=== PATIENT | female | born 1970 | race Caucasian/White ===

== ENCOUNTER 2016-05-30 15:40 | Emergency (ER) | payer OTHER ==
--- NOTE | ~2016-05-30 | CT71 ---
[facility] A Service [facility] RADIOLOGY TEXT RESULTS PATIENT: MARISOL MONTELONGO LOCATION: SED : 70 UNIT #: [id number] AGE: [address]: Jonas Lee MD SEX: F ORDER DR: [id number] [place] [address] [id number] MR#: [id number] Acc #: [id number] NAME: MARISOL MONTELONGO : 1970 SEX: F STUDY DATE/TIME: 05/30/2016 16:10 UNIT: SED ROOM: STUDY DESCRIPTION: CT Head Wo Contrast Attending Physician: Jonas Lee M.D. Ordering Physician: Jonas Lee M.D. Primary Care Physician: Trey Mcgrath Pa-C MEDICAL IMAGING REPORT This report is preliminary unless electronic signature is present. EXAM CT scan of the head without contrast, 05/30/2016 INDICATION Syncope, loss of memory. Headache x3 weeks. TECHNIQUE This CT exam was performed with one or more of the following radiation dose reduction techniques: automatic exposure control, adjustment of mA and/or kV according to patient size, and iterative reconstruction. FINDINGS Axial noncontrast images were obtained from the skull base to the vertex. Ventricular size and configuration are normal. There is no evidence of acute infarct or hemorrhage. There are no extraaxial fluid collections. No mass lesion or mass effect is seen. There are no skull fractures. IMPRESSION Normal noncontrast head CT. Dictated by... Uriel Gerard M.D. THIS IS AN ELECTRONICALLY VERIFIED REPORT Uriel Gerard M.D. at 05/31/2016 9:22 AM ZENY/cristina TD: 05/31/2016 03:30 [facility] A Service [facility] RADIOLOGY TEXT RESULTS PATIENT: MARISOL MONTELONGO LOCATION: SED : 70 UNIT #: [id number] AGE: [address]: Jonas Lee MD SEX: F ORDER DR: MARIIA #: [id number] MEDICAL IMAGING REPORT
[~2016-05-30 15:40] MED LIST: ALBUTEROL17 GM INH; AMITRIPTYLINE H25 MG PO; ANTIVERT PO; ASPIRIN EC81 M1; ASPIRIN EC81 M1 PO; ASPIRIN81 M1 PO; ATARAX PO; BACLOFEN10 MG PO; BACTRIM DS TABL1 TA1 PO; BACTRIM DS TABL1 TA2 PO; BACTRIM DS TABL1 TAB PO; BACTROBAN15 GM TOP; BUSPAR15 MG PO; CALCIUM 5001 TAB PO; CARAFATE1 G PO; CELEBREX PO; CIPRO PO; CLEOCIN PO; COMPAZINE10 MG PO; CYANOCOBAL1000 MCG/M INJ; CYMBALTA PO; DIAZEPAM PO; DICLOFENAC PO; DIFLUCAN PO; EFFEXOR XR PO; ENDOCET 10-3251 TAB PO; FAMOTIDINE PO; FISH OIL 1,0001 EAC1 PO; FISH OIL500 M2 PO; FLAGYL PO; FLEXERIL; FLEXERIL PO; FLEXERIL10 M1 PO; FLEXERIL10 MG PO; GABAPENTIN300 MG PO; GABAPENTIN400 MG PO; GABAPENTIN600 MG PO; GABAPENTIN800 MG PO; HYDROCODON-ACE1 EAC5 PO; HYDROCODON-ACE1 EAC7 PO; HYDROCODON-ACE118 ML PO; IBUPROFEN; IBUPROFEN PO; IMITREX PO; KEFLEX250 M2 PO; KETAMINE CREAM; KLONOPIN PO; KLONOPIN1 MG PO; LISINOPRIL5 MG PO; LODINE500 M1 PO; LORTAB 10-5001 EACH PO; LORTAB 2.5/5001 TAB PO; LORTAB 7.51 TAB 7.5/ PO; MEDI-MECLIZINE25 M1 PO; MEDROL DOSEPAK4 MG PO; MEDROL PO; MEDROL4 MG/DOSE- PO; METOPROLOL SUCC25 MG PO; MOBIC15 MG PO; MOTION RELIEF25 MG PO; NEURONTIN PO; NITROGLYCERIN0.4 MG; NITROGLYGERIN0.4 MG SL; NO MEDICATIONS; OMEPRAZOLE40 M1 PO; PERCOCET 10-651 EACH PO; PERCOCET 10/31 UDTA1 PO; PERCOCET10 PO; PERCOCET5/325 PO; PHENERGAN PO; PHENERGAN25 M1 PO; PREDNISONE PO; PROTONIX PO; RELACORE; ROBAXIN500 MG PO; ROBITUSSIN-DM120 ML PO; TOPROL XL PO; TRAZODONE PO; ULTRAM PO; VERTIN-3225 MG PO; VICODIN 5/1 TAB 5/50 PO; VICODIN 5/500 T1 TAB PO; VOLTAREN50 MG PO; VOLTAREN75 MG PO; ZANAFLEX PO; ZANAFLEX4 M1 PO; ZANTAC150 M1 PO; ZOFRAN PO; ZYRTEC PO; ZYRTEC10 M2 PO; ZYRTEC10 M4 PO; [UNRECOGNIZED DRUG - OTHER] TP
[2016-05-30 16:14] LABS: BASOPHIL# 0.1 X10e3 (0-0.3); BASOPHIL% 1.1 % (0-2.5); EOSINOPHIL# 0.3 X10e3 (0-0.7); EOSINOPHIL% 2.3 % (0.0-7.0); HEMATOCRIT 39.3 % (35.0-45.0); LYMPHOCYTE# 3.4 X10e3 (1.0-3.5); LYMPHOCYTE% 29.8 % (17.0-45.0); MEAN CELL VOLUME 89.5 FL (83-96); MEAN CORPUSCULAR HEMOGLOBIN 29.5 PG (28-34); MEAN PLATELET VOLUME 7.8 FL (6.5-11.5); MONOCYTE# 0.7 X10e3 (0-1.0); MONOCYTE% 6.6 % (3.0-12.0); NEUTROPHIL# 6.8 X10e3 (1.5-7.1); NEUTROPHIL% 60.2 % (40-75); PLATELET COUNT 271 X10e3 (140-420); RED BLOOD COUNT 4.39 X10e (3.90-5.30); RED CELL DISTRIBUTION WIDTH 13.6 % (11.0-15.5); WHITE BLOOD COUNT 11.3 X10e3 (4.0-10.5)
[2016-05-30 16:15] LABS: DIFF IND NO
[2016-05-30 16:33] LABS: BUN/CREATININE RATIO 11.66; CALCIUM SERUM 7.9 mg/dL (8.4-10.2); CREATININE SERUM 1.2 mg/dL (0.6-1.4); GLOM FILT RATE Estimated 51.6 mL/min (>60); POTASSIUM 3.4 mmol/L (3.5-5.1)
[2016-05-30] MEDS ORDERED: FIORICET 50-301 EACH PO (17:23)
== END 2016-05-30 17:25 | disposition home or self-care (01) ==
LOC: SED 15:40
PROVIDERS: Emergency Medicine
DX: R51 Headache (principal); F17.200 Nicotine dependence, unspecified, uncomplicated
CPT/HCPCS: 36415; 70450; 80048; 85025; 96361; 96374; 96375; 99284; J0780; J1100; J1200; J1885

== ENCOUNTER 2016-06-02 21:57 | Observation (INO) | payer OTHER ==
--- NOTE | ~2016-06-02 | EKG ---
PATIENT: MARISOL MONTELONGO UNIT #: [id number] Ventricular Rate: 99 BPM Atrial Rate: 99 BPM P-R Interval: 136 ms QRS Duration: 74 ms Q-T Interval: 344 ms QTC Calculation(Bezet): 441 ms P [place]: 63 degrees Calculated R [place]: 61 degrees Calculated T [place]: 48 degrees Diagnosis Line: Normal sinus rhythm Diagnosis Line: Left ventricular hypertrophy Diagnosis Line: Nonspecific T wave abnormality Diagnosis Line: Abnormal ECG Diagnosis Line: When compared with ECG of 19-APR-2015 18:20, Diagnosis Line: Nonspecific T wave abnormality now evident in Diagnosis Line: Lateral leads Diagnosis Line: Confirmed by REGINA THRASHER MD ([id number]) on Diagnosis Line: 06/03/2016 8:01:01 PM INTERPRETING : WOJCIECH
--- NOTE | ~2016-06-02 | ST ---
Unit #: [id number] #: [id number] Patient: MARISOL MONTELONGO [id number] [address] [address] [id number] I MR#: [id number] NAME: MARISOL MONTELONGO : 1970 SEX: F STUDY DATE/TIME: 06/04/2016 UNIT: [facility] ROOM: 565 STUDY DESCRIPTION: Lexiscan stress test Attending Physician: Jennyfer Carrillo M.D. Primary Care Physician: Kellie Hare M.D. CARDIOLOGY REPORT PROCEDURE PERFORMED EKG portion of a Lexiscan Cardiolite stress test. DISCUSSION Baseline EKG reveals sinus rhythm with a ventricular rate of 79 beats per minute. No ST or T wave changes to suggest ischemia. A total of 0.4 mg of Lexiscan was injected per protocol, followed by Cardiolite. There were some T wave inversions noted in the inferolateral leads but no ST depression or ST elevation. The maximal heart rate was 121 beats per minute with a maximal blood pressure of 155/92 mmHg. The test was stopped due to protocol completion. The patient had constant chest pain. The pain was at the beginning of the stress test and during but did not worsen in intensity. IMPRESSION The patient had constant chest pain the started at baseline. Dictated by... Ladonna Quintanilla APRN for Elif Wood M.D. TR/bhaskar TD: 06/05/2016 16:20 JOB #: [id number] CARDIOLOGY REPORT Page 1 of 1 X CARDIOLOGY REPORT
--- NOTE | ~2016-06-02 | CO ---
Unit #: [id number] #: [id number] Patient: MARISOL BARRERA [id number] [address] [place], [place] [address] [id number] I MR#: [id number] NAME: MARISOL BARRERA ROOM: 565 Age: 45 Sex: F Admission Date: 06/03/2016 : 1970 Attending Physician: Jennyfer Carrillo M.D. Primary Care Physician: Kellie Hare M.D. Consultation Date: 06/03/2016 CONSULTATION REPORT REASON FOR CONSULTATION Chest pain. HISTORY OF PRESENT ILLNESS This is a 45-year-old white female with history of hypertension, hyperlipidemia, fibromyalgia, degenerative disk disease, nicotine abuse. She came to the emergency room with midsternal left anterior chest wall pain and later had nausea, vomiting, diarrhea, abdominal pain. According to the patient, she woke up yesterday afternoon with the left anterior chest wall pain. She described as a heavy pushing type pressure like someone squeezing in her chest. She rated on pain scale of 1 to 10 to be 7. She says she then got up and then later developed nausea and vomiting that progressed throughout the afternoon and then later in the evening she started having abdominal pain and diarrhea. She has chest pain, is waxing and waning, but it does occur when she has some nausea and vomiting. She feels with increased shortness of breath, she had a little diaphoresis and lightheadedness. She denies any palpitations. No presyncope or syncopal type episodes. She has some generalized body aches and may be a low-grade fever and some chills. In the emergency room, the patient's blood pressure was 140/84, heart rate 96, respirations 20, temperature is 98.9, O2 saturations 99% on room air. Initial cardiac enzymes are negative. EKG shows normal sinus rhythm with some nonspecific ST-T wave abnormality and nondiagnostic Q-waves in inferior leads. Her WBCs are 14.5, potassium 3.4. Chest x-ray does not show anything acute. The patient will be admitted with chest pain and also abdominal pain. No nausea, vomiting, diarrhea. Cardiology consult to assist with evaluation and management. Cardiology consulted to assist with evaluation and management. PAST MEDICAL HISTORY 1. In 2006, had exercise Cardiolite stress test. Exercise time was 5 minutes. No ischemia. Ejection fraction 54%. In 2010, had an another stress test at [facility] according to the patient, and was told was normal. 2. Hypertension. 3. Hyperlipidemia. 4. History of migraines and fibromyalgia. 5. Degenerative disk disease. 6. Active smoker. 7. Post traumatic stress disorder. Unit #: [id number] #: [id number] Patient: MARISOL BARRERA 8. History of valvular cancer, had a hysterectomy and had laser surgery. 9. The patient was in the ER on 05/30/2016 for migraine headache and some memory issues. Had a CT of the head that was negative and followed up with Dr. Hare's office with the echo and carotid Dopplers which those results are pending. PAST SURGICAL HISTORY 1. section. 2. History of hysterectomy. 3. Laser surgery for vulvar cancer. 4. Arthroscopic surgery, left knee. 5. Cholecystectomy. 6. Tubal ligation before her hysterectomy. 7. Two rotator cuff surgeries. MEDICATIONS Hydrocodone 7.5 mg one tablet p.o. t.i.d., amitriptyline 25 mg one tablet p.o. daily, calcium 600 mg one tablet b.i.d., cetirizine 10 mg p.o. daily, B12 injections one time weekly, etodolac 500 mg b.i.d., folic acid 1 mg one tablet daily, lisinopril 20 mg one tablet daily, meclizine 25 mg one tablet p.o. b.i.d., metoprolol 25 mg b.i.d., Nitrostat 0.4 mg one tablet sublingual p.r.n., omeprazole 40 mg p.o. daily, Zofran 4 mg one tablet t.i.d., Ventolin two puffs every 4 hours p.r.n., simvastatin dosage unavailable one tablet daily. ALLERGIES Wellbutrin, Stadol, Cymbalta, Lexapro, Paxil, Imitrex, Effexor, latex. SOCIAL HISTORY The patient is disabled due to her chronic back problems in addition to her post traumatic stress syndrome. She smoked a half pack a day. No alcohol or illicit drug abuse. FAMILY HISTORY 1. Her mother at age of 62, had mitral valve prolapse and had hypertension and of myocardial infarction, details she did not have a bypass or stents. 2. Father is living. Her younger brother at the age of 38 with hypertension and an [place]. REVIEW OF SYSTEMS See details in HPI. PHYSICAL EXAMINATION GENERAL: On exam, Ms. Barrera is a 45-year-old white female, in no acute respiratory distress. She is awake, alert, and oriented. VITAL SIGNS: Blood pressure is 128/67, heart rate is 100, respirations 18, temperature 98.3, O2 saturation is 99% on room air. NECK: Trachea midline. No thyromegaly or lymphadenopathy. Normal carotid upstrokes. No jugular venous distention. HEART: S1, S2. Regular rate and rhythm. No clicks, murmurs, or rubs. LUNGS: Bilaterally clear throughout. No wheezes, rales, or rhonchi. ABDOMEN: Generalized tender with palpating hyperactive bowel sounds. EXTREMITIES: Pedal pulses are palpable. No pedal edema. DIAGNOSTIC STUDIES LABORATORY RESULTS: Glucose is 99, BUN 14, creatinine 1.1, eGFR is 57.1. Sodium 136, potassium is 3.4, chloride 104, CO2 of 23, calcium 7.7, total Unit #: [id number] #: [id number] Patient: MARISOL BARRERA protein 7.2, albumin 3.3, bilirubin total 0.8, AST 14, ALT 11, alkaline phosphatase is 55, lipase is 14. WBC is 14.5, hemoglobin 12.8, hematocrit 39.3, and platelets are 223. Initial cardiac enzymes CK-MB is less than 1.0. Troponin less than 0.05. CK-MB less than 1.0. Troponin less than 0.05. IMAGING STUDIES: Chest x-ray, preliminary report, no active disease. CARDIOVASCULAR STUDIES: EKG shows normal sinus rhythm with ventricular rate 92 beats per minute, nonspecific ST-T wave abnormalities in inferior and lateral leads, poor R-wave progression, left ventricular hypertrophy, nondiagnostic Q-waves in inferior leads. IMPRESSION 1. Chest pain, questionable etiology. 2. Stress test normal in 2010. 3. Abdominal pain with nausea, vomiting, diarrhea, with probable gastroenteritis. 4. Hypertension. 5. Hyperlipidemia. 6. Fibromyalgia. 7. LVEF of 54% in 2006. 8. History of fibromyalgia and migraines. PLAN 1. Cardiology consult to assist with evaluation and management. 2. So far, cardiac enzymes are negative. EKG does not show anything acute. 3. If the cardiac enzymes remain negative, we will perform a walking Lexiscan Cardiolite stress test for further evaluation. 4. Obtain a fasting lipid profile and TSH and evaluate. 5. On exam, there was no signs or symptoms of acute congestive heart failure. 6. We will try to obtain latest stress test and cardiology note from [facility] around 2010. 7. Encourage the patient to completely quit smoking. 8. Continue the patient on aspirin, statin, nitrate, and beta-blockers which is a home medication for now. 9. Further recommendations pending per Dr. Amin. 10. The patient will be treated for her probable gastroenteritis per Dr. Aquino. 11. Hypokalemia. The patient's potassium is 3.4. We will supplement most likely per IV runs due to the patient is having lot of nausea and vomiting. It is noted the patient came into the emergency room on 05/30/2016 with complaints of headache and some memory issues and CT of the head was negative and she followed up with Dr. Hare's office and had a carotid ultrasound along with an echo and those results are pending and her symptoms of headache and memory issues have resolved. Thank you very much for allowing us to assist in care. Dictated by... Cindy Cao A.P.R.N. for Maxim Amin M.D. EDUIN/leia TD: 06/03/2016 17:05 Unit #: [id number] #: [id number] Patient: MARISOL BARRERA JOB #: [id number] CONSULTATION REPORT X Cindy Cao APRN CONSULTATION REPORT
--- NOTE | ~2016-06-02 | CR72 ---
[facility] A Service of [facility] RADIOLOGY TEXT RESULTS PATIENT: MARISOL MONTELONGO [facility] 565-01 : [birth year] UNIT #: [id number] AGE: [address]: Jennyfer Carrillo MD SEX: F ORDER DR: [id number] [facility] [address] [facility] [place], [place] [address] [id number] I MR#: [id number] Acc #: [id number] NAME: MARISOL MONTELONGO : 1970 SEX: F STUDY DATE/TIME: 06/02/2016 21:38 [facility] ROOM: [facility] STUDY DESCRIPTION: CR Chest Single View Portable Attending Physician: Jennyfer Carrillo M.D. Ordering Physician: Aries Otero M.D. Primary Care Physician: Kellie Hare M.D. MEDICAL IMAGING REPORT This report is preliminary unless electronic signature is present EXAM AP portable chest 06/02/2016. HISTORY 45-year-old female in the ED complaining of severe chest pressure beginning earlier this afternoon. TECHNIQUE AP portable upright chest x-ray. FINDINGS The heart size and pulmonary vascularity are within normal limits. The lungs are expanded and clear. No visible pulmonary infiltrate or pleural effusion. The previous right shoulder surgery. No change since 04/19/2015. IMPRESSION Negative chest. Dictated by... Jc Rome M.D. THIS IS AN ELECTRONICALLY VERIFIED REPORT Jc Rome M.D. at 06/04/2016 9:53 PM TANNAW/saul TD: 06/04/2016 07:21 JOB #: [id number] MEDICAL IMAGING REPORT COPY
--- NOTE | ~2016-06-02 | DS ---
Unit #: [id number] #: [id number] Patient: MARISOL BARRERA [id number] [address] [address] [id number] I MR#: [id number] NAME: MARISOL BARRERA ROOM: 56 Age: 45 Sex: F Admission Date: 06/03/2016 : 1970 Discharge Date: 06/04/2016 Attending Physician: Jennyfer Carrillo M.D. Primary Care Physician: Kellie Hare M.D. DISCHARGE SUMMARY FINAL DIAGNOSES 1. Atypical chest pain, acute myocardial infarction has been ruled out. Lexiscan Cardiolite stress test was done, cannot rule out anteroapical ischemia. The patient does not want any cardiac cath done at this time, because of the personal issues. She wants to be scheduled in 2 to 4 weeks. The patient understands to seek medical attention if she has chest pain again. 2. Hypertension, which is stable. Continue home medications. 3. Nicotine abuse. Nicotine cessation counseling done. 4. Hyperlipidemia, continue home medication. 5. History of migraine and fibromyalgia, stable. 6. History of degenerative disk disease. 7. History of posttraumatic stress disorder. 8. Hypokalemia, which is resolved. DISCHARGE MEDICATIONS Hydrocodone continue home dose; omeprazole 40 mg daily; Klonopin continue home dose; metoprolol 25 mg b.i.d.; Zocor 20 mg daily; Prinivil 20 mg daily; aspirin 81 mg daily; nitroglycerin 0.4 mg sublingual p.r.n.; folic acid 0.8 mg daily; cyanocobalamin 1000 mcg injection weekly; calcium 600 mg b.i.d.; albuterol inhaler q.4 hours p.r.n.; amitriptyline 25 mg daily; meclizine 25 mg b.i.d. p.r.n. for dizziness; Zofran t.i.d. p.r.n. for nausea; Zyrtec 10 mg p.o. daily. DIAGNOSTIC STUDIES LABORATORY RESULTS: Sodium 143, potassium 3.9, chloride 112, BUN 8, creatinine 1, total cholesterol 170, triglycerides 136, LDL 102, HDL 41, magnesium 1.6. Troponin less than 0.03. TSH 3.71. WBC 8.3, hemoglobin 12.7, hematocrit 40, platelet count of 212. Amylase and lipase are 14 and 19. IMAGING STUDIES: CT scan of the head without contrast was done, which showed normal noncontrast CT. HOSPITAL COURSE Ms. Barrera is a 45-year-old female, who was admitted to the hospital with chest pain. The patient was admitted to telemetry unit. Acute NE was ruled out. The patient did have nausea, vomiting, and diarrhea most likely secondary to gastroenteritis, which is improved. The patient had a stress test done, which shows mild defect. The patient does not want to have a cardiac cath done at this time. The patient has been encouraged to seek help whenever she has chest pain and cardiac cath will be scheduled as an outpatient. Discussed with Dr. Wood about plan of care. Unit #: [id number] #: [id number] Patient: MARISOL BARRERA DISCHARGE INSTRUCTIONS Follow up with primary care provider in 1 week. Follow up with Dr. Wood in 3 to 4 weeks for cardiac cath. Dictated by... Jennyfer Carrillo M.D. MACY/leia TD: 06/05/2016 12:40 JOB #: [id number] DISCHARGE SUMMARY Page 1 of 1 X Jennyfer Carrillo MD X DISCHARGE SUMMARY
--- NOTE | ~2016-06-02 | EKG ---
PATIENT: MARISOL MONTELONGO UNIT #: [id number] Ventricular Rate: 92 BPM Atrial Rate: 92 BPM P-R Interval: 148 ms QRS Duration: 82 ms Q-T Interval: 352 ms QTC Calculation(Bezet): 435 ms P [place]: 67 degrees Calculated R [place]: 55 degrees Calculated T [place]: 45 degrees Diagnosis Line: Normal sinus rhythm Diagnosis Line: Nonspecific T wave abnormality Diagnosis Line: Abnormal ECG Diagnosis Line: When compared with ECG of 02-JUN-2016 20:49, Diagnosis Line: (unconfirmed) Diagnosis Line: No significant change was found Diagnosis Line: Confirmed by REGINA THRASHER MD ([id number]) on Diagnosis Line: 06/03/2016 8:13:33 PM INTERPRETING : WOJCIECH
--- NOTE | ~2016-06-02 | TH ---
Unit #: [id number] #: [id number] Patient: MARISOL MONTELONGO [id number] [address] [address] [id number] I MR#: [id number] NAME: MARISOL MONTELONGO : 1970 SEX: F STUDY DATE/TIME: 06/04/2016 UNIT: [facility] ROOM: 565 STUDY DESCRIPTION: Attending Physician: Jennyfer Carrillo M.D. Primary Care Physician: Kellie Hare M.D. CARDIOLOGY REPORT EXAM Lexiscan Cardiolite stress test, nuclear portion. PROCEDURE Using technetium 99m labeled Cardiolite, rest and stress SPECT images were obtained. Multiple SPECT images were obtained in various views including horizontal and vertical long axis and short axis views of the left ventricle. Images were obtained by gated SPECT method. The patient was administered 11.8 mCi of Cardiolite at rest. The patient was administered 33.3 mCi of Cardiolite after Lexiscan infusion was completed. On the stress images, there is a small area of mild decreased isotope activity in the anteroapical wall. The rest images show normal perfusion. Comparing rest and stress images, a small area of possible stress-induced ischemia involving the anteroapical wall of the left ventricle cannot be ruled out. The left ventricular ejection fraction is calculated to be 52%. There is no focal wall motion abnormality seen. CONCLUSION 1. A small area of possible stress-induced ischemia involving the anteroapical wall of the left ventricle cannot be ruled out. 2. The left ventricular ejection fraction is calculated to be 52%. 3. There is no focal wall motion abnormality seen. 4. Borderline abnormal Lexiscan Cardiolite stress test. 5. Technically limited study due to patient's body habitus. Clinical correlation is requested. Dictated by... Aylin Yeh TD: 06/04/2016 16:58 JOB #: [id number] Unit #: [id number] #: [id number] Patient: MARISOL MONTELONGO CARDIOLOGY REPORT Page 1 of 1 X Attavar,Elif Z MD <ELECTRONICALLY SIGNED> 10/06/16 1429 CARDIOLOGY REPORT
--- NOTE | ~2016-06-02 | HP ---
Unit #: [id number] #: [id number] Patient: MARISOL MONTELONGO [id number] [address] [place], [place] [address] [id number] I MR#: [id number] NAME: MARISOL MONTELONGO ROOM: 56 Age: 45 Sex: F Admission Date: 06/03/2016 : 1970 Attending Physician: Jennyfer Carrillo M.D. Primary Care Physician: Kellie Hare M.D. HISTORY AND PHYSICAL HISTORY OF PRESENT ILLNESS The patient is a 45-year-old white female with history of fibromyalgia syndrome, PTSD, osteoarthritis, hypertension, hyperlipidemia, migraine headaches, chronic low back pain, chronic vertigo, who apparently was seen at [facility] on 05/30/2016 following an episode of global amnesia. CT scan was performed at that time and was negative. She had followed up with Dr. Hare in the office who apparently did an ultrasound of her carotids and did the 2D echo with the results currently pending. Yesterday, she began having chest pain that radiated to the back, then had nausea and vomiting. Arrived in the emergency room. Here she had a slightly elevated white count at 11.5. Her potassium is slightly low. She had a GFR of 57.1 but I do not have any old ones to compare it to. Cardiac enzymes were normal. Amylase and lipase were normal. Chest x-ray reportedly showed on active disease. EKG showed a sinus rhythm with a nonspecific ST abnormality and the patient was admitted for further evaluation. Overnight, the patient has developed profuse diarrhea, continued to have episodes of nausea and vomiting. Her chest pain is nonexertional, nonradiating. She has had a prior negative Cardiolite in 2006 and 2010 as well. She does have a significant family history for coronary artery disease. PAST MEDICAL HISTORY 1. History of fibromyalgia syndrome. 2. PTSD. 3. Generalized anxiety disorder. 4. Agoraphobia. 5. Osteoarthritis. 6. Hypertension. 7. Hyperlipidemia. 8. Migraine headaches. 9. Chronic low back pain. 10. Chronic vertigo. PAST SURGICAL HISTORY 1. Prior arthroscopic knee surgery on the left x2. 2. Multiple C-sections. 3. Laparoscopy. 4. Cholecystectomy. 5. Hysterectomy. 6. Right rotator cuff repair x2. HOME MEDICATIONS 1. Simvastatin, dose unknown. Unit #: [id number] #: [id number] Patient: MARISOL MONTELONGO 2. Ventolin two puffs q.4 h. p.r.n. 3. [place] 7.5/325 one t.i.d. p.r.n. 4. Zyrtec 10 mg daily. 5. Meclizine 25 mg b.i.d. 6. Metoprolol succinate 25 mg b.i.d. 7. Nitrostat 0.4 mg sublingual p.r.n. 8. Omeprazole 40 mg daily. 9. Amitriptyline 25 mg h.s. 10. Lisinopril 10 mg daily. 11. [place] 500 mg b.i.d. 12. Vitamin B12 1000 mcg weekly. 13. Calcium 500 mg daily. 14. Zofran ODT 4 mg t.i.d. 15. Folic acid 0.8 mg daily. ALLERGIES 1. Stadol. 2. Paxil. 3. Effexor. 4. Cymbalta. 5. Lexapro. 6. Imitrex. 7. Wellbutrin. 8. Latex. SOCIAL HISTORY She is . She smokes one pack of cigarettes daily. No alcohol or street drug use. She is not employed, on disability. FAMILY HISTORY As noted above. Her brother at 38 of myocardial infarction. Her mother in her 60s of cardiomyopathy. PHYSICAL EXAMINATION VITAL SIGNS: Afebrile, pulse 102, respirations 22, blood pressure 128/67, room air O2 saturation in the ER was 96%. GENERAL: She is awake, alert, oriented x3. No acute distress. HEENT: Unremarkable. NECK: Supple without JVD, bruits, adenopathy, or thyromegaly. LUNGS: Clear to auscultation. HEART: Regular rate and rhythm without murmurs, rubs, or gallops. ABDOMEN: Soft, nondistended, nontender with positive bowel sounds and no hepatosplenomegaly. EXTREMITIES: No clubbing, cyanosis, or edema. GENITOURINARY: Deferred. RECTAL: Deferred. NEUROLOGIC: Grossly intact. DIAGNOSTIC STUDIES LABORATORY: Cardiac enzymes normal times 3 sets. CBC normal except for a white count of 14.5 with a left shift. BMP is normal except a potassium of 3.4 and a GFR of 57. LFTs are normal. Calcium is slightly low at 7.7 but her albumin is 3.3. Amylase and lipase were normal. IMAGING: Chest x-ray reportedly shows no active disease. CARDIOVASCULAR: EKG as above, has a normal sinus rhythm with a nonspecific ST abnormality. Unit #: [id number] #: [id number] Patient: MARISOL MONTELONGO IMPRESSION 1. Atypical chest pain. 2. Nausea, vomiting, and diarrhea, most likely secondary to gastroenteritis. 3. Recent episode of global amnesia. 4. Posttraumatic stress disorder. 5. Fibromyalgia syndrome. 6. Migraine headaches. 7. Chronic low back pain. 8. Chronic vertigo. 9. Hypertension. 10. Hyperlipidemia. 11. Osteoarthritis. 12. Status post right rotator cuff repair. 13. Status post left knee arthroscopy. PLAN 1. N.p.o. except clear liquids. 2. Metoprolol and lisinopril. 3. Check magnesium. 4. Replace potassium and magnesium per protocol. 5. IV fluids. 6. IV proton pump inhibitors. 7. IV Zofran. 8. Lomotil p.r.n. 9. Cardiology is consulted. 10. Repeat cardiac enzymes. 11. Further evaluation pending results of the above. Dictated by Corey Aquino M.D. VESNA/brissa TD: 06/03/2016 12:31 JOB #: [id number] HISTORY AND PHYSICAL X Corey Aquino MD X HISTORY AND PHYSICAL
--- NOTE | ~2016-06-02 | EKG ---
PATIENT: MARISOL MONTELONGO UNIT #: [id number] Ventricular Rate: 81 BPM Atrial Rate: 81 BPM P-R Interval: 156 ms QRS Duration: 78 ms Q-T Interval: 368 ms QTC Calculation(Bezet): 427 ms P [place]: 69 degrees Calculated R [place]: 67 degrees Calculated T [place]: 77 degrees Diagnosis Line: Normal sinus rhythm Diagnosis Line: Normal ECG Diagnosis Line: When compared with ECG of 03-JUN-2016 10:33, Diagnosis Line: No significant change was found Diagnosis Line: Confirmed by ANA MTZ MD ([id number]) on 06/05/2016 Diagnosis Line: 4:39:27 AM INTERPRETING MD: SMITH CRAMER
[2016-06-02 21:48] LABS: POC - CKMB <1.0 ng/mL (0.0-7.9); POC - TROPONIN <0.05 ng/mL (<=0.05)
[~2016-06-02 21:57] MED LIST changes: +FIORICET 50-301 EACH PO
[2016-06-02 22:04] LABS: BASOPHIL# 0.1 X10e3 (0-0.3); BASOPHIL% 0.4 % (0-2.5); EOSINOPHIL# 0.2 X10e3 (0-0.7); EOSINOPHIL% 1.6 % (0.0-7.0); HEMATOCRIT 39.3 % (35.0-45.0); HEMOGLOBIN 12.8 gm/dL (12.0-16.0); LYMPHOCYTE# 0.7 X10e3 (1.0-3.5); LYMPHOCYTE% 5.1 % (17.0-45.0); MEAN CELL VOLUME 89.4 FL (83-96); MEAN CORPUSCULAR HGB CONC 32.5 g/dL (30-36); MEAN PLATELET VOLUME 8.3 FL (6.5-11.5); MONOCYTE# 0.8 X10e3 (0-1.0); MONOCYTE% 5.2 % (3.0-12.0); NEUTROPHIL# 12.7 X10e3 (1.5-7.1); NEUTROPHIL% 87.7 % (40-75); PLATELET COUNT 223 X10e3 (140-420); RED CELL DISTRIBUTION WIDTH 13.9 % (11.0-15.5); WHITE BLOOD COUNT 14.5 X10e3 (4.0-10.5)
[2016-06-02 22:08] LABS: DIFF IND NO
[2016-06-02 22:54] LABS: ALBUMIN SERUM 3.3 g/dL (3.5-5.0); BILIRUBIN, DIRECT 0.1 mg/dL (0.0-0.2); BILIRUBIN,INDIRECT 0.7 mg/dL (0.0-0.9); BILIRUBIN,TOTAL 0.8 mg/dL (0.2-2.0); BUN/CREATININE RATIO 12.72; CALCIUM SERUM 7.7 mg/dL (8.4-10.2); CREATININE SERUM 1.1 mg/dL (0.6-1.4); GLOM FILT RATE Estimated 57.1 mL/min (>60); POTASSIUM 3.4 mmol/L (3.5-5.1); PROTEIN TOTAL SERUM 7.2 g/dL (6.0-8.3)
[2016-06-03 00:01] LABS: POC - CKMB <1.0 ng/mL (0.0-7.9); POC - TROPONIN <0.05 ng/mL (<=0.05)
[2016-06-03] MEDS ORDERED: ZOFRAN ODT4 MG PO (00:58)
[2016-06-03] MEDS ORDERED: ALBUTEROL17 GM INH (00:59)
[2016-06-03 01:14] LABS: AMYLASE 19 U/L (0-46); LIPASE 14 U/L (22-51)
[2016-06-03] MEDS ORDERED: FOLIC ACID0.8 MG PO (01:15)
[2016-06-03 06:29] LABS: CK TOTAL 29 IU/L (26-140)
[2016-06-03] MEDS ORDERED: CALCIUM PO (11:04)
[2016-06-03] MEDS ORDERED: AMITRIPTYLINE H25 MG PO (11:05)
[2016-06-03] MEDS ORDERED: PRINIVIL20 M1 PO (11:08)
[2016-06-03] MEDS ORDERED: ZOCOR PO (11:12)
[2016-06-03 14:24] LABS: CK TOTAL 36 IU/L (26-140)
[2016-06-04 08:08] LABS: BASOPHIL% 0.5 % (0-2.5); EOSINOPHIL# 0.2 X10e3 (0-0.7); EOSINOPHIL% 2.7 % (0.0-7.0); HEMOGLOBIN 12.7 gm/dL (12.0-16.0); LYMPHOCYTE# 2.3 X10e3 (1.0-3.5); LYMPHOCYTE% 27.7 % (17.0-45.0); MEAN CELL VOLUME 91.1 FL (83-96); MEAN CORPUSCULAR HGB CONC 31.9 g/dL (30-36); MEAN PLATELET VOLUME 8.1 FL (6.5-11.5); MONOCYTE# 0.7 X10e3 (0-1.0); MONOCYTE% 8.5 % (3.0-12.0); NEUTROPHIL% 60.6 % (40-75); PLATELET COUNT 212 X10e3 (140-420); RED BLOOD COUNT 4.39 X10e (3.90-5.30); RED CELL DISTRIBUTION WIDTH 13.8 % (11.0-15.5); WHITE BLOOD COUNT 8.3 X10e3 (4.0-10.5)
[2016-06-04 08:20] LABS: DIFF IND NO
[2016-06-04 08:59] LABS: BLOOD UREA NITROGEN 8 mg/dL (9-23); CARBON DIOXIDE 23 mmol/L (22-31); CHLORIDE 112 mmol/L (100-111); CHOLESTEROL 170 mg/dL (0-200); GLOM FILT RATE Estimated ABOVE60 mL/min (>60); GLUCOSE FASTING 90 mg/dL (70-110); HDL CHOLESTEROL 41 mg/dL (35-95); LDL CHOLESTEROL 102 mg/dL (-130); LDL/HDL RATIO 2 RATIO (0-4); MAGNESIUM 1.6 mg/dL (1.6-3.0); POTASSIUM 3.9 mmol/L (3.5-5.1); SODIUM 143 mmol/L (135-145); TRIGLYCERIDES 136 mg/dL (10-160)
[2016-06-04] MEDS ORDERED: ASPIRIN81 MG PO (17:05)
== END 2016-06-04 18:46 | disposition home or self-care (01) ==
LOC: CED 21:57 → CEDOF 06-03 00:03 → C5C 06-03 08:14
PROVIDERS: Emergency Medicine; Internal Medicine; Physician Assistant Medical
DX: R07.89 Other chest pain (principal); R11.2 Nausea with vomiting, unspecified; R19.7 Diarrhea, unspecified; I10 Essential (primary) hypertension; F17.210 Nicotine dependence, cigarettes, uncomplicated; E78.5 Hyperlipidemia, unspecified; E87.6 Hypokalemia; F43.10 Post-traumatic stress disorder, unspecified; M79.7 Fibromyalgia; G43.909 Migraine, unspecified, not intractable, without status migrainosus; Z82.49 Family history of ischemic heart disease and other diseases of the circulatory system; M54.5 Low back pain; G89.29 Other chronic pain; R42 Dizziness and giddiness; M19.90 Unspecified osteoarthritis, unspecified site; Z85.44 Personal history of malignant neoplasm of other female genital organs; Z90.49 Acquired absence of other specified parts of digestive tract; Z90.710 Acquired absence of both cervix and uterus; Z91.040 Latex allergy status; Z88.8 Allergy status to other drugs, medicaments and biological substances
CPT/HCPCS: 36415; 71010; 78452; 80048; 80061; 80076; 82150; 82550; 82553; 83690; 83735; 84443; 84484; 85025; 93005; 93017; 94640; 94760; 96374; 96375; 96376; 99285; A9500; C9113; G0378; J1885; J2405; J2785

== ENCOUNTER 2016-06-17 23:59 | Emergency (ER) | payer OTHER ==
--- NOTE | ~2016-06-17 | EKG ---
PATIENT: MARISOL MONTELONGO UNIT #: [id number] Ventricular Rate: 95 BPM Atrial Rate: 95 BPM P-R Interval: 140 ms QRS Duration: 80 ms Q-T Interval: 386 ms QTC Calculation(Bezet): 485 ms P Agness: 63 degrees Calculated R Agness: 39 degrees Calculated T Agness: 62 degrees Diagnosis Line: Normal sinus rhythm Diagnosis Line: Possible Left atrial enlargement Diagnosis Line: Prolonged QT Diagnosis Line: Abnormal ECG Diagnosis Line: When compared with ECG of 04-JUN-2016 06:09, Diagnosis Line: QT has lengthened Diagnosis Line: Confirmed by ANA MTZ MD ([id number]) on 06/19/2016 Diagnosis Line: 11:02:07 PM INTERPRETING MD: SMITH CRAMER
[~2016-06-17 23:59] MED LIST changes: +ASPIRIN81 MG PO; +CALCIUM PO; +FOLIC ACID0.8 MG PO; +PRINIVIL20 M1 PO; +ZOCOR PO; +ZOFRAN ODT4 MG PO
== END 2016-06-18 03:15 | disposition left against medical advice (07) ==
LOC: CED 23:59
DX: Z53.21 Procedure and treatment not carried out due to patient leaving prior to being seen by health care provider (principal)
CPT/HCPCS: 93005

== ENCOUNTER 2016-07-20 15:50 | Inpatient (IN) | payer OTHER ==
--- NOTE | ~2016-07-20 | CO ---
Unit #: [id number] #: [id number] Patient: MARISOL MONTELONGO [id number] [facility] [address] [facility] [facility]. [place], [place] [address] [id number] I MR#: [id number] NAME: MARISOL MONTELONGO ROOM: 314 Age: 45 Sex: F Admission Date: 07/20/2016 : 1970 Attending Physician: Jennyfer Carrillo M.D. Primary Care Physician: Kellie Hare M.D. Requesting Physician: Jennyfer Carrillo M.D. Consultation Date: 07/21/2016 CONSULTATION REPORT REASON FOR CONSULTATION New stroke. PATIENT IDENTIFICATION This is a 45-year-old right-handed white female who was evaluated in room 314 at [facility]. SOURCE OF INFORMATION The patient and previous records. The patient was just discharged from this facility on 06/04/2016. PROBLEM LIST 1. History of atypical chest pain. She has been worked up in the past. 2. Hypertension. 3. Nicotine abuse. 4. Hyperlipidemia. 5. History of migraine. 6. History of fibromyalgia. 7. Degenerative disk disease. 8. History of posttraumatic stress disorder. 9. Chronic vertigo. 10. Prior arthroscopic knee surgery. 11. Multiple C-sections. 12. Laparoscopy. 13. Cholecystectomy. 14. Hysterectomy. 15. Right rotator cuff repair. HISTORY OF PRESENT ILLNESS This is a very pleasant 45-year-old female, who actually had symptoms which probably started sometime in the morning yesterday. She came with on and off symptoms of right-sided weakness and there was a question about some right-sided continuing symptoms. So far I have been unable to really pin it down, whether she totally resolved. She presented at 3:50 p.m. yesterday, reporting right-sided heaviness. When she was worked up, I got the call and I requested them to just go straight for MRI to see if it shows anything. Obviously she was outside the window for TPA intervention anyway. She was taking aspirin. She ended up with MRI and CTA and the MRI shows left para midline pontine infarct. CTA was okay. She is already taking aspirin. She was admitted for further workup. She has gotten worse since then, probably evolution of this rather significant stroke. Her workup so far shows her blood pressure maximum of 150 systolic and 97 diastolic. Triglycerides 335. Other than that I am not seeing anything else. She has been started on Plavix and rehab and workup Unit #: [id number] #: [id number] Patient: MARISOL MONTELONGO has been initiated. No falls or injury. No seizure. She has a history of migraine, but it is okay. She does have some chest discomfort. It looks like she recently, in May of this year, had carotid Dopplers and echo done at Dr. Hare's office. Cardiology did see her this last admission. There is probably stroking in that her mother had stroke in her 40s, reported small vessel stroke, and she at age 62 from cardiac issues. Her brother probably had a stroke also. He was rather young. She does have a BMI of 34. She is a smoker. She did not quit last time. PAST MEDICAL HISTORY As discussed above. PAST SURGICAL HISTORY As discussed above. SOCIAL HISTORY Apparently she is and lives with her . She has continued to smoke about a half pack per day. No alcohol or drug use. FAMILY HISTORY As discussed. There is some cardiovascular and stroke issue. ALLERGIES Stadol, Paxil, Effexor, Cymbalta, Lexapro, Imitrex, Wellbutrin, latex. CURRENT MEDICATIONS Based on her list and previous discharge, her medications are 1. Hydrocodone/acetaminophen 7.5/325 mg q.i.d. 2. Zyrtec. 3. Meclizine. 4. Metoprolol. 5. Nitroglycerin p.r.n. 6. Omeprazole. 7. Cyanocobalamin. 8. Zofran. 9. Ventolin. 10. Folic acid. 11. Calcium. 12. Amitriptyline 25 mg. 13. Prinivil 20 mg. 14. Zocor 20 mg. 15. Aspirin 81 mg. 16. Fish oil. 17. Celebrex. REVIEW OF SYSTEMS Right-sided weakness and dysarthria. No additional weight issues, fever, chills or rigors. PHYSICAL EXAMINATION GENERAL: Dysarthria. Very mild right-sided weakness, which she did not report, though. VITALS: Temperature 97.6, pulse 68, respiratory rate 17, blood pressure 132/87. No pain was reported. O2 saturations 97%-100%. Weight was 224 pounds. BMI was reported as 36. NECK: No neck problems. Unit #: [id number] #: [id number] Patient: MARISOL MONTELONGO LUNGS: No shortness of air, cough or expectoration. HEART: Some chest discomfort. ABDOMEN: No nausea, vomiting, diarrhea or constipation. : No symptoms. EXTREMITIES: No extremity problems. SPINE: No back problems. PSYCHIATRIC: No issues other than discussed. NEUROLOGIC: As discussed. No other hematologic or dermatologic or endocrine problems. NEUROLOGIC EXAMINATION The patient is awake. She is alert. She is oriented. She can name. She can follow commands. No right/left confusion. No finger agnosia. She does have dysarthria. CRANIAL NERVES: Full collins of vision to confrontation. Eye movements are conjugate. I did not see any ptosis. I did not see any nystagmus. Extraocular movements are intact. Sensation of the face and scalp are normal. Central muscles of facial expression are normal. Hearing seems to be intact bilaterally. Tongue was midline. Uvular was midline. Palate elevation was normal. Hear turning and shoulder shrug unremarkable. MOTOR: Normal bulk, tone on the left side. The right side upper extremity I really did not see any movement. Right lower extremity is 3/5. SENSORY: Intact for soft touch and pain sensation. No extinction was seen. Romberg was not evaluated. GAIT: Deferred. REFLEXES: Reflexes still were present at about 1/4. Toes are upgoing on the right side and downgoing on the left side. She could not do bkdlqq-yo-qzdy-to-finger on the right side. Left side was okay. DIAGNOSTIC STUDIES IMAGING: Reviewed. LABORATORY: Reviewed. ASSESSMENT Acute, nonhemorrhagic, left paramidline pontine infarct, usually pontine perforators from the basilar artery. Resulting in dysarthria and significant right-sided weakness. PLAN I agree with Plavix, increased simvastatin, get echo, get physical therapy and occupational therapy to see her. I made her n.p.o. to have swallow study done before she can resume. I discussed her with the team. I discussed her with Dr. Carrillo, who is going to be seeing her. Will go from there. Call me with any other questions or concerns. Further treatment will be based on our findings. Dictated by... Aylin Florian/livan TD: 07/22/2016 08:20 JOB #: [id number] Unit #: [id number] #: [id number] Patient: MARISOL MONTELONGO CONSULTATION REPORT Page 1 of 1 X Estefani Amezquita MD CONSULTATION REPORT
--- NOTE | ~2016-07-20 | MR17 ---
[facility] A Service of [facility] RADIOLOGY TEXT RESULTS PATIENT: MARISOL MONTELONGO LOCATION: C3A 314- : 70 UNIT #: [id number] AGE: [address]: Jennyfer Carrillo MD SEX: F ORDER DR: [id number] [facility] [address] [facility] [place], [place] [address] [id number] I MR#: [id number] Acc #: [id number] NAME: MARISOL MONTELONGO : 1970 SEX: F STUDY DATE/TIME: 07/20/2016 19:46 UNIT: [address] ROOM: [facility] STUDY DESCRIPTION: MR Brain WWo Contrast Attending Physician: Jennyfer Carrillo M.D. Ordering Physician: Shabnam Khan M.D. Primary Care Physician: Kellie Hare M.D. MRI CENTER REPORT This report is preliminary unless electronic signature is present. EXAM Brain MRI with and without contrast, 07/20/2016. COMPARISON Head CT, 07/20/2016. PROCEDURE Routine brain MR with and without contrast. HISTORY Left arm and leg heaviness for 1 day, with slurred speech. FINDINGS There is relatively mild, but definite left lety-pontine restricted diffusion and faint T2 signal change, barely perceptible on FLAIR imaging. This would be well-positioned to cause left-sided symptoms. No other areas of restricted diffusion are seen. The configuration of the area of restricted diffusion is typical for pontine ischemic lesions, given the vascular anatomy. Normal flow voids are seen in the cerebral vessels, including the basilar artery, which appears patent. Otherwise, brain parenchymal signal is remarkable for some mild periventricular nonspecific white matter change. No intracranial mass or abnormal enhancement is seen. IMPRESSION Left lety-pontine restricted diffusion and faint abnormal T2 signal, consistent most likely with ischemia, based both on its signal and configuration. Otherwise, negative and remarkable for some slight nonspecific white [facility] A Service of [facility] RADIOLOGY TEXT RESULTS PATIENT: MARISOL MONTELONGO LOCATION: C3A 314- : [birth year] UNIT #: [id number] AGE: [address]: Jennyfer Carrillo MD SEX: F ORDER DR: matter change, not exceptional for age. No mass or abnormal enhancement. Dictated by... Kolby Jacobs M.D. THIS IS AN ELECTRONICALLY VERIFIED REPORT Kolby Jacobs M.D. at 07/23/2016 10:32 AM STEVE/camilo TD: 07/21/2016 13:34 JOB #: [id number] MRI CENTER REPORT Page 1 of 1 COPY
--- NOTE | ~2016-07-20 | DS ---
Unit #: [id number] #: [id number] Patient: MARISOL MONTELONGO [id number] [address] [address] [id number] I MR#: [id number] NAME: MARISOL MONTELONGO ROOM: 314 Age: 45 Sex: F Admission Date: 07/20/2016 : 1970 Discharge Date: 07/24/2016 Attending Physician: Jennyfer Carrillo M.D. Primary Care Physician: Kellie Hare M.D. DISCHARGE SUMMARY Patient is going to [facility] for acute rehabilitation. DISCHARGE DIAGNOSES 1. Acute left pontine stroke with right-sided weakness and dysarthria. 2. History of chest pain, status post abnormal Lexiscan stress, patient refusing a cardiac catheterization, status post evaluation per Cardiology. Continue medical management. See discharge medication reconciliation below. 3. Hypertension. 4. Dyslipidemia. 5. History of fibromyalgia and chronic pain. 6. History of posttraumatic stress disorder. DISCHARGE MEDICATIONS 1. Protonix 40 mg daily. 2. Nitrostat 0.4 mg p.r.n. for chest pain. 3. Folic acid 1 mg daily. 4. B12 at 1000 mcg weekly. 5. Calcium 600 mg p.o. b.i.d. 6. Lisinopril 20 mg daily. 7. Sliding scale insulin. 8. Fish oil 1000 mg daily. 9. Aspirin 81 mg daily. 10. Lortab 7/5 at 1 tablet t.i.d. p.r.n. for pain. 11. Proventil 2 puffs inhaler q.4 hours p.r.n. for shortness of air. 12. Amitriptyline 25 mg at bedtime. 13. Meclizine 25 mg b.i.d. p.r.n. for dizziness. 14. Zofran 4 mg p.o. t.i.d. p.r.n. for nausea. 15. Zyrtec 10 mg daily. 16. Metoprolol 25 mg b.i.d. 17. Zocor 40 mg at bedtime. CONSULTS DURING THIS HOSPITAL STAY 1. Dr. Amezquita, Neurology. 2. Dr. Wood, Cardiology. LABS, DIAGNOSTICS, AND PROCEDURES DURING THIS HOSPITAL STAY 1. Transesophageal echocardiogram showed mild tricuspid regurgitation, mild mitral regurgitation, mild to moderate aortic regurgitation, no regional wall motion abnormalities, and ejection fraction of 55% to 60%. 2. Chest x-ray unremarkable with no acute cardiopulmonary disease. 3. MRI of the brain showed left lety-pontine restricted diffusion and faint abnormal T2 signal consistent most likely with ischemia. Unit #: [id number] #: [id number] Patient: MARISOL MONTELONGO 4. CT head without contrast showed ill-defined decreased density on the left side of the luis miguel corresponding to the area of subacute or acute infarct. No mass effect. 5. CT angiogram of the neck and head showed no significant stenosis or occlusion and no definite vascular abnormalities. HISTORY OF PRESENT HOSPITAL STAY/HOSPITAL COURSE Please refer to History and Physical done by my colleague, Dr. Jennyfer Carrillo, for initial presentation on this female, but basically, patient is a 45-year-old who recently was discharged from our service secondary to chest pain with abnormal Cardiolite stress test, and patient refused a cardiac catheterization and still does refuse cardiac catheterization. She came back with acute onset of arm numbness and facial weakness, along with some dysarthria, with workup as above, and was diagnosed with acute left-pontine stroke, status post evaluation per Neurology. Dr. Amezquita was following the patient. Again, please see workup as above. Currently, she is stable from a Neurology standpoint, and after PT/OT evaluation recommended for acute rehab, is being transferred to [facility] for acute rehab. Continue statin and continue aspirin. Abnormal Lexiscan stress as above, status post Cardiology evaluation. Continue medical management. Again, patient refuses cardiac catheterization. Hypertension, stable. Dyslipidemia. Continue statin. History of fibromyalgia and chronic pain. Continue [place] p.r.n. DISPOSITION Going to [facility] with discharge medications as above. Dictated by... Aylin Cai/jason TD: 07/24/2016 18:47 JOB #: [id number] DISCHARGE SUMMARY Page 1 of 1 X Miquel Mccabe MD X DISCHARGE SUMMARY
--- NOTE | ~2016-07-20 | CO ---
Unit #: [id number] #: [id number] Patient: MARISOL MONTELONGO [id number] [address] [address] [id number] I MR#: [id number] NAME: MARISOL MONTELONGO ROOM: 314 Age: 46 Sex: F Admission Date: 07/20/2016 : 1970 Attending Physician: Jennyfer Carrillo M.D. Primary Care Physician: Kellie Hare M.D. Consultation Date: 07/23/2016 CONSULTATION REPORT REASON FOR CONSULTATION Abnormal Cardiolite stress test and echocardiogram. PAST MEDICAL HISTORY 1. Chest pain with abnormal Lexiscan Cardiolite in May 2016. 2. Hypertension. 3. Hyperlipidemia. 4. Tobacco abuse. 5. Fibromyalgia. 6. Migraines. 7. PTSD. 8. Chronic back pain. 9. Vulvar cancer, status post hysterectomy. 10. Negative Cardiolite stress test in 09/2006. PAST SURGICAL HISTORY 1. section x3. 2. Nasal septum reduction. 3. Left knee arthroscopy. 4. Cholecystectomy. 5. Tubal ligation. 6. Hysterectomy. 7. Rotator cuff repair x2. SOCIAL HISTORY She is disable due to chronic back pain and PTSD. Denies alcohol or illicit drug use. One-half pack per day smoker greater than 20 years. FAMILY HISTORY Mother at 62 from [place]. Brother at 38 with [place]. ALLERGIES Paroxetine, sumatriptan, venlafaxine, bupropion, butorphanol, duloxetine, latex, escitalopram. HOME MEDICATIONS 1. [place] 7.5 mg four times daily. 2. Zyrtec 10 mg p.o. daily. 3. Meclizine 25 mg p.o. twice a day. 4. Metoprolol succinate 25 mg p.o. twice daily. 5. Nitroglycerin 0.4 mg sublingual p.r.n. for chest pain. 6. Omeprazole 40 mg p.o. daily. 7. Zofran 4 mg p.o. three times a day as needed for nausea. 8. Albuterol 2 puffs inhalation q.4 hours p.r.n. Unit #: [id number] #: [id number] Patient: JAYDA,MARISOL R 9. Folic acid 1 mg p.o. daily. 10. Calcium 600 mg p.o. twice daily. 11. Amitriptyline hydrochloride 25 mg p.o. daily. 12. Lisinopril 20 mg p.o. daily. 13. Simvastatin 20 mg p.o. daily. 14. Aspirin 81 mg p.o. daily. 15. Fish oil 1000 mg p.o. daily. 16. Celebrex 200 mg p.o. daily. REVIEW OF SYSTEMS Otherwise negative except for what was stated in the HPI. PHYSICAL EXAMINATION GENERAL: This is a pleasant 45-year-old female, in no acute distress. VITAL SIGNS: Temperature 98.4, heart rate 66, respiratory rate 17, blood pressure 127/77. Height 66 inches and weight 100.4 kg. HEENT: Head is atraumatic and normocephalic. Pupils are equal and round. Mucous membranes are moist. NECK: Supple. Trachea is midline. Negative for JVD. LUNGS: Clear to auscultation. Nonlabored respiratory pattern. CARDIOVASCULAR: S1 and S2. Regular rate and rhythm. No murmurs, rubs, or gallops. ABDOMEN: Soft, nontender, and nondistended. EXTREMITIES: Pulses are palpable. No pedal edema. No cyanosis. NEUROLOGIC: Dysarthria. Very mild right-sided weakness. Alert and oriented x3. DIAGNOSTIC STUDIES LABORATORY RESULTS: Sodium 135, potassium 4, chloride 105, BUN 9, creatinine 1.2, glucose 89. Hemoglobin 13.1, hematocrit 40.4, white blood cell count 10.5, platelets 300. Lipid panel; LDL 76, cholesterol 173, triglycerides 335. Troponin less than 0.05 in the ER. IMAGING STUDIES: MRI shows left paramedian pontine infarct. CTA of the head and neck showed no stenosis or occlusion. Chest x-ray showed no acute disease. CARDIOVASCULAR STUDIES: Echocardiogram is pending. EKG shows sinus arrhythmia with nonspecific T-wave abnormalities. ASSESSMENT 1. Left pontine stroke. 2. Abnormal Lexiscan with questionable anteroapical ischemia. 3. Hypertension. 4. Hyperlipidemia. 5. Tobacco abuse. 6. Fibromyalgia. 7. Degenerative disk disease. PLAN Spoke with the patient in great detail and she again declines to have cardiac cath. We will optimize medications. She is on adequate medication treatment. We will continue her statin, MANPREET, and beta-hipolito. She is on dual antiplatelet therapy with Plavix and aspirin. Thank you for asking us to see this patient. We appreciate the consult. Unit #: [id number] #: [id number] Patient: MARISOL MONTELONGO Ozzy Fischer byDeanna.. Corazon Naylor APRN for Aylin Yeh/leia TD: 07/24/2016 17:10 JOB #: [id number] CONSULTATION REPORT Page 1 of 1 X X CONSULTATION REPORT
--- NOTE | ~2016-07-20 | HP ---
Unit #: [id number] #: [id number] Patient: MARISOL MONTELONGO [id number] [address] [place], [place] [address] [id number] I MR#: [id number] NAME: MARISOL MONTELONGO ROOM: 314 Age: 45 Sex: F Admission Date: 07/20/2016 : 1970 Attending Physician: Jennyfer Carrillo M.D. Primary Care Physician: Kellie Hare M.D. HISTORY AND PHYSICAL CHIEF COMPLAINT Arm numbness off and on since 5:00 in the morning yesterday. HISTORY OF PRESENTING ILLNESS This 45-year-old female who is well known to me was recently discharged from hospital on June 04, 2016 after being admitted for atypical chest pain. Patient did have abnormal Cardiolite stress test but she did not want to get cardiac cath done and went home. Patient came because in the morning she started having numbness and tingling of the arm and the facial droop and slurred speech. She took a while to come to ER. She was seen in ER 412. She had a headache. She urinated on self and was drooling. The patient's family brought her to ER. She is being evaluated in room 314. She is awake, alert, oriented x3 but does have dysarthria still. Patient did not have any fever, chills or rigors. She did have headache. No complaining of seizures, fainting or syncopal episode. No history of altered mental status. PAST MEDICAL HISTORY 1. Abnormal stress test recently. 2. Hypertension. 3. Nicotine abuse. 4. Hyperlipidemia. 5. History of migraine and fibromyalgia. 6. History of degenerative disc disease. 7. Post traumatic stress disorder. 8. History of vulvar cancer, status post hysterectomy and laser surgery. PAST SURGICAL HISTORY Multiple surgical history: 1. History of hysterectomy. 2. Arthroscopic surgery of the left knee. 3. Cholecystectomy. 4. Tubal ligation. 5. Two rotator cuff surgeries. ALLERGIES Wellbutrin, Stadol, Cymbalta, Lexapro, Paxil, Imitrex, Effexor, Latex. SOCIAL HISTORY Patient lives at home with her and her 17-year-old boy is going to move back. She is disabled due to chronic back problems. She is a smoker, continues to smoke half pack per day for many years, no alcohol abuse or drug abuse. Unit #: [id number] #: [id number] Patient: MARISOL MONTELONGO FAMILY HISTORY Patient's mother at the age of 62 with cardiac etiology. REVIEW OF SYMPTOMS As per history of presenting illness. PHYSICAL EXAMINATION GENERAL: Patient is being evaluated in room 314. VITAL SIGNS: Blood pressure is 132/87. Respiratory rate 17. Pulse is 68. Temperature 97.6. Oxygen saturation is 97%. HEENT: Head is normocephalic. Eye movements are normal. No nystagmus. There is a facial droop on the right side. Tongue is deviated to the right. CHEST: Has fair air entry, no additional sounds. CVS: S1, S2 positive, regular rhythm. ABDOMEN: Soft, no tenderness. EXTREMITIES: Negative edema. Pulses are palpable. PAPER COLORER: Awake, alert, oriented x3. Patient does have dysarthria and right upper extremity decreased strength 2/5, right lower extremity again 2/5. Reflexes are noted to be increased. DIAGNOSTIC STUDIES LABORATORY: Workup in ER: WBC 10.5, hemoglobin 13.1, hematocrit 40.4, platelet count of 300, troponin is less than 0.05, sodium 135, potassium 4.0, chloride 105, BUN 9, creatinine 1.2, liver enzymes are normal. Urine drug screen is positive for opiates. Lipid profile shows total cholesterol 173, triglycerides 335, LDL 76, HDL 30. IMAGING: MRI of the brain was done which shows left lety-pontine restricted diffusion and faint abnormal T2 signal, consistent most likely with ischemia. ASSESSMENT Patient is being admitted to telemetry unit with: 1. Acute left pontine infarct with right-sided weakness and dysarthria. 2. Hyperlipidemia. 3. Abnormal stress test in May 2016. 4. Nicotine abuse. 5. Hypertension. 6. Post traumatic stress disorder. PLAN Plan is admit to telemetry unit. Dr. Amezquita has been consulted. Discussed with Dr. Amezquita at length. Hemoglobin A1C will be done. Two-D echocardiogram will be done. Patient will be started on Plavix and simvastatin. Patient will need PT/OT. Speech Therapy consult will be done before stating treatment as patient not sure whether she is able to swallow at this time. Lovenox 40 mg subcu daily. Plan of care has been discussed with patient. I tried to call the patient's , could not contact him but talked to the patient's son who is a 17-year-old and he gave me some information about the patient's events yesterday. Dictated by Unit #: [id number] #: [id number] Patient: MARISOL MONTELONGO Aylin Sung TD: 07/21/2016 16:22 JOB #: [id number] HISTORY AND PHYSICAL Page 1 of 1 X Jennyfer Carrillo MD X HISTORY AND PHYSICAL
--- NOTE | ~2016-07-20 | CT17 ---
[facility] A Service of [facility] & [facility] RADIOLOGY TEXT RESULTS PATIENT: MARISOL MONTELONGO LOCATION: [facility] 314-01 : 70 UNIT #: [id number] AGE: [address]: Jennyfer Carrillo MD SEX: F ORDER DR: [id number] [facility] [address] [place], [place] [address] [id number] I MR#: [id number] #: [id number] NAME: MARISOL MONTELONGO : 1970 SEX: F STUDY DATE/TIME: 07/20/2016 20:34 [facility] ROOM: [facility] STUDY DESCRIPTION: CT Angio Head Attending Physician: Jennyfer Carrillo M.D. Ordering Physician: Shabnam Khan M.D. Primary Care Physician: Kellie Hare M.D. MEDICAL IMAGING REPORT This report is preliminary unless electronic signature is present EXAM CT angio neck with angiographic reconstructions. INDICATIONS Right arm numbness off and on since 5:00 a.m. with facial drooping and slurred speech. Abnormal MRI showing possible left pontine ischemic change. TECHNIQUE This study was done with 80 mL of Isovue 370 and spiral imaging was performed from the aortic arch through the brain. 3D reconstructions were generated and NASCET criteria was utilized. This CT exam was performed with one or more of the following radiation dose reduction techniques: automatic exposure control, adjustment of mA and/or kV according to patient size, and iterative reconstruction. FINDINGS Ventricles and subarachnoid spaces are normal and there are no masses or extraaxial fluid collections or hemorrhage. Lung apices are clear. Thyroid gland is normal. Submandibular glands and parotid glands are normal. There are no neck masses or adenopathy. VASCULAR FINDINGS: The aortic arch is normal in size. The great vessels have their origins obscured by streak artifact from the subclavian vein, but they appear patent and the vertebral arteries both arise from the subclavian arteries. Left 1 is dominant. They unite to form the basilar artery. The common carotid arteries, carotid bifurcations, and internal carotid arteries are normal in appearance. The basilar artery and posterior cerebral arteries are normal in appearance. The middle and anterior cerebral arteries are normal in appearance. There is an anterior communicating artery present. [facility] A Service of [facility] RADIOLOGY TEXT RESULTS PATIENT: MARISOL MONTELONGO LOCATION: A 314-01 : 70 UNIT #: [id number] AGE: [address]: Jennyfer Carrillo MD SEX: F ORDER DR: IMPRESSION CTA of the head and neck does not show any evidence of significant stenosis or occlusion. No definite vascular abnormality is identified. Dictated by... Uriel Gerard M.D. THIS IS AN ELECTRONICALLY VERIFIED REPORT Uriel Gerard M.D. at 07/21/2016 2:01 PM ZENY/arabella TD: 07/21/2016 09:45 JOB #: [id number] MEDICAL IMAGING REPORT Page 1 of 1 COPY
--- NOTE | ~2016-07-20 | CR72 ---
[facility] A Service of [facility] RADIOLOGY TEXT RESULTS PATIENT: MARISOL MONTELONGO LOCATION: [facility] 314-01 : [birth year] UNIT #: [id number] AGE: [address]: Jennyfer Carrillo MD SEX: F ORDER DR: [id number] [facility] [address] [place], [place] [address] [id number] I MR#: [id number] Acc #: [id number] NAME: MARISOL MONTELONGO : 1970 SEX: F STUDY DATE/TIME: 07/20/2016 17:04 UNIT: [address] ROOM: [facility] STUDY DESCRIPTION: CR Chest Single View Portable Attending Physician: Jennyfer Carrillo M.D. Ordering Physician: Shabnam Khan M.D. Primary Care Physician: Kellie Hare M.D. MEDICAL IMAGING REPORT This report is preliminary unless electronic signature is present EXAM Chest radiograph 07/20/2016 HISTORY Altered mentation, short of air with activity headache right arm numbness began 07/19/2016. Smoker 25 years. FINDINGS AP radiograph of chest is presented. Comparison 06/02/2016. Heart and mediastinum normal in size and contour. Lungs well inflated and clear. No acute pulmonary disease, pleural effusion or pneumothorax. No suspicious nodule. The bony structures are unremarkable. Dictated by... Mitch Rahman M.D. THIS IS AN ELECTRONICALLY VERIFIED REPORT Mitch Rahman M.D. at 07/23/2016 7:35 AM WENDY/sukhwinder TD: 07/21/2016 01:26 JOB #: [id number] MEDICAL IMAGING REPORT Page 1 of 1 COPY
--- NOTE | ~2016-07-20 | CO ---
Unit #: [id number] #: [id number] Patient: MARISOL MONTELONGO [id number] [facility] [place], [place] [address] [id number] I MR#: [id number] NAME: MARISOL MONTELONGO ROOM: 314 Age: Sex: F Admission Date: 07/20/2016 : 1970 Attending Physician: Jennyfer Carrillo M.D. Primary Care Physician: Kellie Hare M.D. Consultation Date: 07/23/2016 CONSULTATION REPORT ADDENDUM HISTORY OF PRESENT ILLNESS This is a 45-year-old, female who presented to the ER with right side arm and leg weakness as well as facial drooping per her . MRI of the brain done in the ER showed a left pontine infarct. She was recently evaluated for chest pain in May of 2016. A Lexiscan Cardiolite stress test showed possible small areas of anteroapical wall ischemia with an EF of 52%. She did decline a cardiac cath at that time due to personal reasons. It was decided to proceed with medical management and her medications were optimized with aspirin, statin, MANPREET and beta-hipolito. She was instructed to seek medical treatment for recurrent chest pain. We were asked to see her this admission to evaluate for possible cardiac cath. She reports daily occurrences of chest pressure. The chest pressure occurs with sharp pains with activity that resolve within 3-4 minutes with rest. She denies associated symptoms of nausea, vomiting, diaphoresis, or radiating pain with the incidents. Currently, she is chest pain free. Denies shortness of breath, nausea, vomiting, and diaphoresis. She does have right arm and leg weakness as well as some garbled speech. Dictated by... AMY Albert TD: 07/26/2016 06:31 JOB #: [id number] CONSULTATION REPORT Page 1 of 1 X X CONSULTATION REPORT
--- NOTE | ~2016-07-20 | EKG ---
PATIENT: MARISOL MONTELONGO UNIT #: [id number] Ventricular Rate: 65 BPM Atrial Rate: 65 BPM P-R Interval: 166 ms QRS Duration: 84 ms Q-T Interval: 420 ms QTC Calculation(Bezet): 436 ms P Harrell: 60 degrees Calculated R Harrell: 55 degrees Calculated T Harrell: 54 degrees Diagnosis Line: Normal sinus rhythm with sinus arrhythmia Diagnosis Line: Normal ECG Diagnosis Line: When compared with ECG of 17-JUN-2016 23:22, Diagnosis Line: QT has shortened Diagnosis Line: Confirmed by ANA MTZ MD ([id number]) on 07/22/2016 Diagnosis Line: 8:33:46 PM INTERPRETING MD: SMITH CRAMER
--- NOTE | ~2016-07-20 | CT23 ---
[facility] A Service of [facility] & [facility] RADIOLOGY TEXT RESULTS PATIENT: MARISOL MONTELONGO LOCATION: [facility] 314-01 : [birth year] UNIT #: [id number] AGE: [address]: Jennyfer Carrillo MD SEX: F ORDER DR: [id number] [facility] [address] [place], [place] [address] [id number] I MR#: [id number] Acc #: [id number] NAME: MARISOL MONTELONGO : 1970 SEX: F STUDY DATE/TIME: 07/20/2016 20:34 UNIT: [address] ROOM: [facility] STUDY DESCRIPTION: CT Angio Neck Attending Physician: Jennyfer Carrillo M.D. Ordering Physician: Shabnam Khan M.D. Primary Care Physician: Kellie Hare M.D. MEDICAL IMAGING REPORT This report is preliminary unless electronic signature is present EXAM CT angio neck with angiographic reconstructions. INDICATIONS Right arm numbness off and on since 5:00 a.m. with facial drooping and slurred speech. Abnormal MRI showing possible left pontine ischemic change. FINDINGS Result text under order number [id number]. Please see this order for result text. Dictated by... Uriel Gerard M.D. THIS IS AN ELECTRONICALLY VERIFIED REPORT Uriel Gerard M.D. at 07/21/2016 2:00 PM ZENY/arabella TD: 07/21/2016 09:40 JOB #: [id number] MEDICAL IMAGING REPORT Page 1 of 1 COPY
--- NOTE | ~2016-07-20 | CT71 ---
[facility] A Service of [facility] RADIOLOGY TEXT RESULTS PATIENT: MARISOL MONTELONGO LOCATION: [facility] 314-01 : [birth year] UNIT #: [id number] AGE: [address]: Jennyfer Carrillo MD SEX: F ORDER DR: [id number] [facility] [address] [place], [place] [address] [id number] I MR#: [id number] Acc #: [id number] NAME: MARISOL MONTELONGO : 1970 SEX: F STUDY DATE/TIME: 07/20/2016 20:26 UNIT: [address] ROOM: [facility] STUDY DESCRIPTION: CT Head Wo Contrast Attending Physician: Jennyfer Carrillo M.D. Ordering Physician: Shabnam Khan M.D. Primary Care Physician: Kellie Hare M.D. MEDICAL IMAGING REPORT This report is preliminary unless electronic signature is present EXAM Head CT without contrast. DATE OF EXAM 07/20/2016 HISTORY Right arm numbness off and on since 5 a.m. this morning with facial drooping and weakness, slurred speech. TECHNIQUE This CT exam was performed with one or more of the following radiation dose reduction techniques: automatic exposure control, adjustment of mA and/or kV according to patient size, and iterative reconstruction. FINDINGS Multiple axial images were obtained from the skull base to vertex without intravenous contrast administration. The ventricles are normal in size, shape and position. There is no evidence of midline shift. No mass is seen. There is an ill-defined area of decreased density in the left side of the luis miguel. Brain MRI performed earlier today did demonstrate acute or subacute infarct in this region. No intra or extraaxial fluid collections are seen. IMPRESSION Ill-defined area of decreased density along the left side of the luis miguel corresponding to the area of subacute or acute infarct on preceding brain MRI. No mass effect is seen at this time. STAT * RESULT [facility] A Service of [facility] RADIOLOGY TEXT RESULTS PATIENT: MARISOL MONTELONGO LOCATION: [facility] 314-01 : [birth year] UNIT #: [id number] AGE: [address]: Jennyfer Carrillo MD SEX: F ORDER DR: Dictated by... Conor Jarrett M.D. THIS IS AN ELECTRONICALLY VERIFIED REPORT Conor Jarrett M.D. at 07/22/2016 3:13 PM TOM/celina TD: 07/20/2016 21:17 JOB #: [id number] MEDICAL IMAGING REPORT Page 1 of 1 COPY
[2016-07-20 17:42] LABS: BASOPHIL# 0.1 X10e3 (0-0.3); BASOPHIL% 1.1 % (0-2.5); EOSINOPHIL# 0.2 X10e3 (0-0.7); EOSINOPHIL% 2.1 % (0.0-7.0); HEMATOCRIT 40.4 % (35.0-45.0); HEMOGLOBIN 13.1 gm/dL (12.0-16.0); LYMPHOCYTE# 3.4 X10e3 (1.0-3.5); LYMPHOCYTE% 32.6 % (17.0-45.0); MEAN CELL VOLUME 88.5 FL (83-96); MEAN CORPUSCULAR HEMOGLOBIN 28.7 PG (28-34); MEAN CORPUSCULAR HGB CONC 32.4 g/dL (30-36); MEAN PLATELET VOLUME 7.6 FL (6.5-11.5); MONOCYTE# 0.8 X10e3 (0-1.0); MONOCYTE% 7.1 % (3.0-12.0); NEUTROPHIL% 57.1 % (40-75); PLATELET COUNT 300 X10e3 (140-420); RED BLOOD COUNT 4.56 X10e (3.90-5.30); RED CELL DISTRIBUTION WIDTH 13.3 % (11.0-15.5); WHITE BLOOD COUNT 10.5 X10e3 (4.0-10.5)
[2016-07-20 17:46] LABS: POC - CKMB <1.0 ng/mL (0.0-7.9); POC - TROPONIN <0.05 ng/mL (<=0.05)
[2016-07-20 17:46] LABS: DIFF IND NO
[2016-07-20 17:55] LABS: PARTIAL THROMBOPLASTIN TIME 29.1 SECONDS (23.5-31.3)
[2016-07-20 18:04] LABS: ALBUMIN SERUM 3.6 g/dL (3.5-5.0); ALKALINE PHOSPHATASE 66 U/L (32-92); ALT (SGPT) 19 U/L (10-40); AST (SGOT) 19 U/L (10-42); BILIRUBIN, DIRECT <0.1 mg/dL (0.0-0.2); BILIRUBIN,INDIRECT 0.4 mg/dL (0.0-0.9); BILIRUBIN,TOTAL 0.5 mg/dL (0.2-2.0); BLOOD UREA NITROGEN 9 mg/dL (9-23); CALCIUM SERUM 8.4 mg/dL (8.4-10.2); CARBON DIOXIDE 22 mmol/L (22-31); CHLORIDE 105 mmol/L (100-111); CREATININE SERUM 1.2 mg/dL (0.6-1.4); GLOM FILT RATE Estimated 54.5 mL/min (>60); GLUCOSE FASTING 89 mg/dL (70-110); PROTEIN TOTAL SERUM 7.5 g/dL (6.0-8.3); SODIUM 135 mmol/L (135-145)
[2016-07-20 18:55] LABS: URINE SOURCE CLEAN CATCH
[2016-07-20 19:13] LABS: URINE APPEARANCE CLEAR; URINE BILIRUBIN NEG (NEG); URINE BLOOD NEG (NEG); URINE COLOR YELLOW; URINE GLUCOSE NEG (NEG); URINE KETONE NEG (NEG); URINE LEUKOCYTE ESTERASE 2+ (NEG); URINE NITRATE NEG (NEG); URINE PROTEIN NEG (NEG); URINE SPECIFIC GRAVITY 1.008 (1.003-1.035); URINE UROBILINOGEN 0.2 MG/DL (NEG)
[2016-07-20 19:17] LABS: CULTURE INDICATED? YES; URBCS1 AUWI 0-2 /[HPF] (0-2); URINE BACTERIA AUWI NEG (NEGATIVE); URINE SQUAMOUS EPITHELIAL CELL OCC /[HPF]
[2016-07-20 19:24] LABS: AMPHETAMINE NEG (NEG); BARBITURATES NEG (NEG); BENZODIAZEPINES NEG (NEG); COCAINE NEG (NEG); MARIJUANA NEG (NEG); OPIATES POS (NEG); TRICYCLIC ANTIDEPRESSANTS NEG (NEG); U METHADONE NEG (NEG)
[2016-07-20 21:45] LABS: POC - CKMB <1.0 ng/mL (0.0-7.9); POC - TROPONIN <0.05 ng/mL (<=0.05)
[2016-07-21] MEDS ORDERED: FISH OIL 1,0001 EAC4 PO (02:17)
[2016-07-21] MEDS ORDERED: CELECOXIB200 MG PO (02:21)
[2016-07-21 07:29] LABS: CHOLESTEROL 173 mg/dL (0-200); HDL CHOLESTEROL 30 mg/dL (35-95); LDL CHOLESTEROL 76 mg/dL (-130); LDL/HDL RATIO 3 RATIO (0-4); TRIGLYCERIDES 335 mg/dL (10-160)
[2016-07-21 17:42] LABS: FOLATE (FOLIC ACID) 16.7 ng/mL (>5.8)
[2016-07-24 05:21] LABS: HEMATOCRIT 38.2 % (35.0-45.0); HEMOGLOBIN 12.4 gm/dL (12.0-16.0); MEAN CELL VOLUME 88.1 FL (83-96); MEAN CORPUSCULAR HEMOGLOBIN 28.6 PG (28-34); MEAN CORPUSCULAR HGB CONC 32.4 g/dL (30-36); MEAN PLATELET VOLUME 7.7 FL (6.5-11.5); RED BLOOD COUNT 4.33 X10e (3.90-5.30); RED CELL DISTRIBUTION WIDTH 13.3 % (11.0-15.5); WHITE BLOOD COUNT 9.8 X10e3 (4.0-10.5)
[2016-07-24 06:31] LABS: CALCIUM SERUM 8.2 mg/dL (8.4-10.2)
== END 2016-07-24 20:30 | DRG 65 ==
LOC: CED 15:50 → C3A PCU 22:05 → CEDOF 22:05 → CED 22:16 → C3A PCU 22:16 → CEDOF 07-21 00:24 → C3A PCU 07-21 00:24
PROVIDERS: Emergency Medicine; Internal Medicine; Internal Medicine Cardiovascular Disease; Physician Assistant Medical; Student in an Organized Health Care Education/Training Program
PROC: B246ZZZ Ultrasonography of Right and Left Heart (ICD-10-PCS; principal; 2016-07-23)
DX: I63.29 Cerebral infarction due to unspecified occlusion or stenosis of other precerebral arteries (principal); G81.91 Hemiplegia, unspecified affecting right dominant side; I10 Essential (primary) hypertension; R47.1 Dysarthria and anarthria; R29.810 Facial weakness; R47.81 Slurred speech; E78.5 Hyperlipidemia, unspecified; M79.7 Fibromyalgia; G89.29 Other chronic pain; F43.10 Post-traumatic stress disorder, unspecified; I08.3 Combined rheumatic disorders of mitral, aortic and tricuspid valves; F17.210 Nicotine dependence, cigarettes, uncomplicated; R94.39 Abnormal result of other cardiovascular function study; Z90.710 Acquired absence of both cervix and uterus; Z90.49 Acquired absence of other specified parts of digestive tract; Z98.51 Tubal ligation status; Z91.040 Latex allergy status; Z88.8 Allergy status to other drugs, medicaments and biological substances; Z82.49 Family history of ischemic heart disease and other diseases of the circulatory system
CPT/HCPCS: 36415; 70450; 70496; 70498; 70553; 71010; 80048; 80061; 80076; 80307; 81003; 82553; 82607; 82746; 82947; 83036; 84484; 85025; 85027; 85610; 85730; 87086; 92507; 92523-GN; 92526; 92610; 93005; 93306; 94664; 94760; 97110; 97116; 97162; 97167; 97530; 97535; 99285; A9577; J1650; J3420; Q9967